=== PATIENT | male | born 1975 | race Caucasian/White ===

== ENCOUNTER → 2019-05-09 16:10 | Outpatient (CLI) | payer OTHER, SELFPAY ==
--- NOTE | 2019-05-09 | DI.RAD.S_ITS ---
PROCEDURE: XR HIP W PEL IF DONE RT 2V INDICATIONS: Right Hip Pain TECHNIQUE: AP pelvis with lateral view(s) of the right hip(s). COMPARISON: [facility], , HIP 2V RIGHT, 11/01/2014, 13:55. FINDINGS: Bones: No fractures or dislocations but there has been progression of degenerative joint osteoarthritis at the right hip, now severe, with [id number] articulation and formation of subchondral cysts both at the acetabulum and some cortical right femoral head.. Pelvic ring appears intact. No suspicious bony lesions. Soft tissues: The visualized bowel gas pattern is normal. No suspicious soft tissue calcifications. IMPRESSION: No acute trauma found but there is severe right hip joint osteoarthritis that has progressed from the 11/01/14 comparison plain film imaging. [id number] articulation now is present. Hip joint osteoarthritis is moderately severe at the left hip. Dictated by: Bryce Lundberg M.D. on 05/09/2019 at 17:35 Approved by: Bryce Lundberg M.D. on 05/09/2019 at 17:36
== END ==
PROVIDERS: PCP Family Medicine; Visit Provider Family Medicine
DX: M25.551 Pain in right hip (principal); M16.0 Bilateral primary osteoarthritis of hip
CPT/HCPCS: 73502

== ENCOUNTER → 2019-10-02 09:15 | Outpatient (CLI) | payer OTHER, SELFPAY ==
[2019-10-03 02:46] LABS: COVID19 Sendout Not Detected (Not Detect)
== END ==
PROVIDERS: PCP Family Medicine; Visit Provider Physician Assistant
DX: Z01.812 Encounter for preprocedural laboratory examination (principal)
CPT/HCPCS: 87635

== ENCOUNTER 2019-10-04 13:57 | Day surgery (SDC) | payer OTHER, SELFPAY ==
[2019-09-28 08:00] VITALS: BMI 30.8
[2019-10-04] VITALS (10 sets, daily range): BP systolic 127–165; BP diastolic 84–97; PULSE 69–87; RESP 11–16; TEMP 36.1–36.4; O2SAT 96–100; BMI 30.1
[2019-10-04] MEDS: LACTATED RINGERS 1,000 ML 42 ML IV (14:21)
--- NOTE | 2019-10-04 14:31 | PM.PREOP ---
Pre-operative Note COVID-19 COVID-19 status: Negative Result date/Date tested (Pos, Neg/Pending): 10/02/19 Interval Note History & Physical reviewed/Exam performed by Physician: Yes Changes to H&P: No
[2019-10-04] MEDS: CEFAZOLIN 2 GM/100 ML FROZ.PIGGY IV (15:03)
--- NOTE | 2019-10-04 15:24 | SUR.OPER ---
Supine on padded OR bed, head on pillow, arms secured on padded arm boards at <90 degrees abduction, legs uncrossed, safety belt at thigh, tape over blanket over lower legs.
[2019-10-04] MEDS: BUPIVACAINE 0.25% (PF) VIAL 30 ML INJ (15:29)
[2019-10-04] MEDS: LACTATED RINGERS 1,000 ML 100 ML IV (16:01)
--- NOTE | 2019-10-04 16:29 | P.OP_ITS ---
Operative Date/Time/Diagnoses Date of procedure: 10/04/19 Time of procedure: 16:29 Pre-op diagnosis: right inguinal hernia Post-op diagnosis: same Procedure & Clinicians Procedure: Open right inguinal hernia repair with mesh Same procedure as scheduled: Yes Indications: 44-year-old man with a symptomatic right inguinal hernia Surgeon: Addison Shipman Anesthesia Type: General Operative Notes Findings: Direct right inguinal hernia Estimated Blood Loss (mL): 10 Procedure in detail: The patient was placed supine on the table and bilateral lower extremity compression devices were applied. Anesthesia was induced they were intubated with an LMA and received 2g of Ancef. A time-out was performed. They were prepped and draped in sterile fashion. The right external inguinal ring and the anterior superior iliac crest were identified and marked. 1 finger breath above the right inguinal ligament the skin was infiltrated with 0.25% bupivacaine. The skin incision was made here and the subcutaneous tissues were divided with electrocautery exposing the external oblique aponeurosis which was then opened along the direction of its fibers. The ilioinguinal nerve was identified on the anterior aspect of the cord and protected. Using a kittner cord was carefully dissected away from the inguinal canal adjacent to the pubic tubercle. The cord was freed and encircled with a [place] drain. A large direct floor defect was identified. I looked for the iliohypogastric nerve but was not able to identify it. The cremasteric fibers surrounding the cord were divided using electrocautery close to the internal ring.. The vas deferens and the testicular vessels were preserved and protected. There was no indirect hernia within the cord. I placed a plug of mesh within the large floor defect. I selected a medium lightweight Pro Loop hernia mesh. The inferior medial aspect of the mesh was anchored to the the pubic tubercle such that there was ap proximately 2 cm of tubercle overlap with 0 Prolene and then was run continuously along the inferior edge of the mesh to the shelving edge of the inguinal ligament. Interrupted 3-0 Vicryl was used to anchor the superior aspect of the mesh to the rectus sheath and to the internal oblique aponeurosis. A slit was made in the mesh such that 2/3 of it were above the cord 1/3 below and then there were crossed and then anchored to the inguinal ligament using 0 Prolene suture ensure that the recreation of the internal ring accommodated the tip of an instrument. The tails of the mesh were then tucked under the external oblique aponeurosis. The repair was checked for hemostasis. The wound was irrigated with sterile saline. The external oblique aponeurosis was reapproximated in a running fashion using 3 0 Vicryl. The subcutaneous tissues were reapproximated with 3 0 Vicryl skin closed with 4 0 Monocryl followed by the application of Dermabond. At the end of the operation ensure that both testicles were within the scrotum. The sponge instrument count at the end operation was correct. The patient emerged from anesthesia was extubated and transferred to the postoperative care unit in stable condition. Complications: none Post-operative Condition: stable Disposition: same day surgery
--- NOTE | 2019-10-04 17:23 | SUR.PHASEII ---
1715 Resting, states that he has dizziness and prefers to rest longer before going home. Call light given, pt informed that his is on the way, and that we will help him get ready as needed. Michael.
--- NOTE | 2019-10-04 17:55 | SUR.PHASEII ---
1360 dizziness much improved after dozing. Stable on feet, tolerating Po intake well. Site CDI. No questions/concerns. To car in w/c by Kit Hartman RN
== END 2019-10-04 17:51 | disposition home or self-care (01) ==
PROVIDERS: PCP Family Medicine; Referring Provider Surgery; Visit Provider Surgery
PROC: (CPT 49505; principal; 2019-10-04 15:15)
DX: K40.90 Unilateral inguinal hernia, without obstruction or gangrene, not specified as recurrent (principal); K21.9 Gastro-esophageal reflux disease without esophagitis
CPT/HCPCS: 49505; C1781; J0690; J1100; J2405; J2704; J3010

== ENCOUNTER → 2021-01-29 10:33 | Outpatient (CLI) | payer OTHER, SELFPAY ==
--- NOTE | 2021-01-29 10:34 | DI.CT.S_ITS ---
PROCEDURE: CT ABDOMEN PELVIS W CON INDICATIONS: r/o r inguinal hernia reoccurence TECHNIQUE: After the administration of oral and IV contrast, axial sections were acquired from the lung bases to the pubic symphysis. Coronal and sagittal reformats were performed. For radiation dose reduction, the following was used: automated exposure control, adjustment of mA and/or kV according to patient size. COMPARISON: None. FINDINGS: Image quality: Portions of the lower pelvis are suboptimally evaluated secondary to metallic streak artifact from hip arthroplasty. Lung bases: Unremarkable. Heart: No significant findings. ABDOMEN: Liver: Liver is mildly enlarged with diffuse steatosis. Gallbladder: The gallbladder is unremarkable. Biliary ducts: Unremarkable. Pancreas: Unremarkable. Spleen: Unremarkable. Adrenal Glands: Unremarkable. Kidneys and Ureters: Unremarkable. Stomach and Bowel: Stomach, small bowel loops, and colon are unremarkable. Peritoneum: No abnormal intraperitoneal fluid. No free air. Ventral Wall: No hernia. Abdominal Nodes: No retroperitoneal or mesenteric adenopathy by size criteria. Vessels: Aorta and inferior vena cava are normal in size. PELVIS: Pelvic Organs: Unremarkable. Bladder: Unremarkable. Pelvic Nodes: No enlarged lymph nodes. Miscellaneous: Prominent fat containing right inguinal hernia is present. It is noted that the anterior right lateral superior corner of the bladder is at the orifice of the hernia. Bones: Unremarkable. IMPRESSION: 1. Fat containing right inguinal hernia containing portion of the bladder wall at the origin. Dictated by: Mima Rabago M.D. on 01/29/2021 at 12:30 Approved by: Mima Rabago M.D. on 01/29/2021 at 12:36
== END ==
PROVIDERS: PCP Family Medicine; Referring Provider Surgery; Visit Provider Surgery
DX: R10.30 Lower abdominal pain, unspecified (principal); K40.91 Unilateral inguinal hernia, without obstruction or gangrene, recurrent; K76.0 Fatty (change of) liver, not elsewhere classified
CPT/HCPCS: 74177

== ENCOUNTER → 2021-04-22 09:54 | Outpatient (CLI) | payer OTHER, SELFPAY ==
[2021-04-22 11:15] LABS: COVID19 -Nasal RAPID Negative (Negative)
== END ==
PROVIDERS: PCP Family Medicine; Visit Provider Surgery
DX: Z01.812 Encounter for preprocedural laboratory examination (principal); Z20.822 Contact with and (suspected) exposure to COVID-19
CPT/HCPCS: 87635; C9803

== ENCOUNTER 2021-04-23 10:20 | Day surgery (SDC) | payer OTHER, SELFPAY ==
[2021-04-16 08:28] VITALS: BMI 31.4
[2021-04-23] VITALS (9 sets, daily range): BP systolic 113–136; BP diastolic 81–93; PULSE 67–80; RESP 12–18; TEMP 36.3–36.9; O2SAT 94–98; BMI 31.4
[2021-04-23] MEDS: LACTATED RINGERS 1,000 ML 100 ML IV (11:07)
--- NOTE | 2021-04-23 11:14 | PM.HP.1 ---
History of Present Illness History of Present Illness Date Patient Seen: 04/23/21 Time Patient Seen: 11:14 [place] [facility] [place] 45-year-old man here for elective laparoscopic repair recurrent right inguinal reducible. Feeling well today. No acute concerns. Please refer to the H& P from January 2021 for further detail. There been no interval changes in health Patient History Medical History Chronic hip pain HTN (hypertension) Obesity Surgical History (Updated 04/16/21 @ 08:35 by Jasmyn Dewey RN) Hx of hernia repair (09/2019) Status post total hip resurfacing (01/2020) Family & Social History Family History Father Stroke Social History: household members spouse,children Tobacco & Substance use: Smoking Status Never smoker alcohol intake current alcohol intake frequency a few times a month Substance Use Type does not use Meds Home Medications and Allergies Home Medications Medication Instructions Recorded Confirmed Type amlodipine 10 mg tablet 10 mg PO DAILY 04/16/21 04/23/21 History lisinopril 10 mg tablet 10 mg PO DAILY 04/16/21 04/23/21 History Allergies Allergy/AdvReac Type Severity Reaction Status Date / Time No Known Drug Allergies Allergy Verified 04/23/21 10:44 Exam Vital Signs (past 8 hours): - 04/23/21 10:56 Temperature 97.9 F Pulse Rate 72 Respiratory Rate 16 Blood Pressure 136/93 H Pulse Oximetry 98 Oxygen Delivery Method Room Air Narrative Exam Narrative: General adult male alert oriented no acute distress Abdomen soft nontender nondistended. Site of the right inguinal hernia is marked my initials Assessment & Plan Assessment and plan (1) Recurrent right inguinal hernia: Status: Acute Assessment & Plan narrative: 45-year-old man with a recurrent right inguinal hernia. A laparoscopic right inguinal hernia repair. Technical details of the operation were again discussed with the patient. Operative risks including bleeding infection chronic pain damage to surrounding structures recurrence of hernia were discussed. His questions have been answered he is in agreement with this plan. Time Spent With Patient Critical Care time: I spent a total of [] minutes of critical care time on this patient's care today; this time is exclusive of procedural time.
[2021-04-23] MEDS: CEFAZOLIN 2 GM/20 ML SYRINGE IV (11:52)
--- NOTE | 2021-04-23 12:10 | SUR.OPER ---
Supine on padded OR bed, head on pillow, arms padded and tucked at sides, legs uncrossed, safety belt at thigh, tape over blanket over lower legs .
[2021-04-23] MEDS: BUPIVACAINE 0.25% (PF) VIAL 30 ML INJ (12:14)
--- NOTE | 2021-04-23 13:27 | PM.OP.1 ---
Operative Date/Time/Diagnoses Date of procedure: 04/23/21 Time of procedure: 13:28 Pre-op diagnosis: Recurrent right inguinal hernia Post-op diagnosis: same Procedure & Clinicians Procedure: Laparoscopic transabdominal preperitoneal (LARY) repair of recurrent right inguinal hernia Same procedure as scheduled: Yes Indications: recurrent inguinal hernia s/p open hernia repair Surgeon: Addison Shipman Click Yes if Unassisted: Yes Anesthesia Type: General Operative Notes Findings: Direct defect only Specimen(s): none sent Estimated Blood Loss (mL): 10 Procedure in detail: The patient was brought to the operating room and placed supine on the table. Bilateral sequential compression devices were applied. General anesthesia was induced and they were intubated with an endotracheal tube. A garcia cath was placed in sterile fashion. They received Ancef prior to skin incision. They were prepped and draped in sterile fashion. A time out was performed. The skin was infiltrated with 0.25% bupivicaine. A 1 cm supra umbilical midline incision was made. The fascia sharply incised and the abdomen entered traumatically. A 10mm balloon port was placed and pneumoperitoneum was established at 15mm Hg. Inspection of the abdomen demonstrated no evidence of injury upon entry. Two 5 mm ports were then placed under direct visualization in the right and left lower quadrant lateral to the rectus muscle. A right direct hernia was observed. There was no left inguinal hernia and no right indirect hernia. The peritoneum 4 cm superior to the deep inguinal ring between the medial umbilical ligament and the anterior superior iliac spine was incised. The medial preperitoneal dissection was carried out into the space of Retzius bluntly, the bladder was swept inferiorly, the pubis and Raul's ligament were identified. Next attention was turned towards the lateral aspect of the peritoneal flap. The preperitoneal fat with the testicular vessels was carefully dissected off the inferior peritoneal flap. The cord was carefully explored there was no evidence of an indirect hernia. The attachements to the direct hernia sac were divided and the direct defect was reduced. A large Bard 3D Max mesh was then placed into the abdomen and positioned such that the myopectineal orifice was completely covered with good overlap on all sides. The mesh was anchored with tacks, one high medial, one high lateral and one into Raul's ligament. The peritoneal flap was then repositioned back to its original position and tacks were used to anchor it in position such that no bowel could herniate into the preperitoneal space. The area was examined for hemostasis. The 5mm trocars were removed under direct visualization and pneumoperitoneum was deflated through the umbilical trocar, The fascia at the umbilicus was closed with 0-Vicryl in figure of 8 fashion, skin closed with 4-0 Monocyl followed by Dermabond. The sponge and instrument count at the end of the case was correct. Both testicles were entirely within the scrotum at the end of the case. The patient emerged from anesthsia was extubated and transferred to recovery in stable condition. Complications: none Post-operative Condition: stable Disposition: same day surgery
[2021-04-23] MEDS: BENZOCAINE/MENTHOL 1 LOZ PKT 1 EACH PO (14:26)
[2021-04-23] MEDS: HYDROMORPHONE 2 MG TABLET PO (14:27)
== END 2021-04-23 14:40 | disposition home or self-care (01) ==
PROVIDERS: PCP Family Medicine; Referring Provider Surgery; Visit Provider Surgery
PROC: 0YQ54ZZ Repair Right Inguinal Region, Percutaneous Endoscopic Approach (ICD-10-PCS; CPT 49651; principal; 2021-04-23 10:45)
DX: K40.91 Unilateral inguinal hernia, without obstruction or gangrene, recurrent (principal); I10 Essential (primary) hypertension; E66.9 Obesity, unspecified; Z68.31 Body mass index [BMI] 31.0-31.9, adult
CPT/HCPCS: 49651; 82962; C1781; J0690; J1100; J1885; J2250; J2405; J2704; J3010